=== PATIENT | female | born 1950 | race Caucasian/White ===

== ENCOUNTER 2020-01-10 06:52 | Day surgery (SDC) | payer MEDICARE, BC ==
[~2020-01-10] VITALS: Ht 175.3 cm; Wt 87.7 kg
[2020-01-10] VITALS (10 sets, daily range): BP systolic 118–155; BP diastolic 66–82; PULSE 52–79; TEMP 97.5–98.7
[2020-01-10] MEDS ORDERED: PRINIVIL10 MG PO (07:25)
[2020-01-10] MEDS ORDERED: ONE-A-DAY ESSE1 EACH PO (07:26)
[2020-01-10] MEDS ORDERED: FERROUS GL325 MG/TAB PO (07:27)
[2020-01-10] MEDS ORDERED: VITAMIN C500 MG PO (07:27)
[2020-01-10] MEDS ORDERED: FOLIC ACID0.4 MG PO (07:27)
--- NOTE | 2020-01-10 12:20 | NUR ---
PATIENT BACK IN ROOM 330 POST OP LTK. ORIENTED BUT DROWSY. VSS. DENIES PAIN IN LLE. PATIENT IS UNABLE TO MOVE BLE. LTK DRESSING IS CD&I WITH BULKY ACEWRAP AND ICE PACK INPLACE. TEDS TO RLE. SCD'S TO BLE. POSITIVE PEDAL PULSES TO BLE. HEAD TO TOE ASSESSMENT WNL. NO C/O N/V. IV FLUIDS INFUSING INTO LEFT HAND IV. LIQUIDS AT BEDSIDE. ORIENTED TO ROOM. CALL LIGHT IN REACH. PATIENT SLEEPING, LIGHTS TURNED DOWN.
--- NOTE | 2020-01-10 16:43 | NUR ---
[facility] met with the patient to complete initial intake. The patient lives in [place] with her , Nehemias. The patient has a walker and is independent with ADLs. The patient's PCP is Dr. Marcelle Drummond and patient receives medications from [facility] with no difficulties. The patient does not have advanced directives and was not interested in DPOA-HC form. The patient to have OP PT in [place]. Her first appointment is on Wednesday, 01/14. Nehemias will provide transportation at discharge. There are no additional needs at this time.
--- NOTE | 2020-01-10 21:00 | NUR ---
Pt ambulates with gait belt and walker with one assist to joint center window and back. Gait steady. Voids and then to bed. Takes HS meds without problem. IVF infusing to left forearm without redness or swelling.
--- NOTE | 2020-01-11 00:11 | NUR ---
Pt reports significant pain to left knee. Removed pillow from beneath leg and medicated with Oxycodone 10mg po at this time.
[2020-01-11 00:14] VITALS: BP 122/89; PULSE 66; TEMP 97.6
--- NOTE | 2020-01-11 01:40 | NUR ---
Pt reports pain 9/10 to left knee, medicated with Tramadol 100mg po at this time.
--- NOTE | 2020-01-11 03:30 | NUR ---
Pt reports pain is 4/10 at this time.
[2020-01-11 05:16] VITALS: BP 106/65; PULSE 56; TEMP 97.9
--- NOTE | 2020-01-11 05:26 | NUR ---
Medicated with Oxycodone 10mg po for left knee pain. Assisted to bathroom, voids and back to bed.
--- NOTE | 2020-01-11 07:18 | NUR ---
PT RESTING IN BED EATING BREAKFAST. DRESSING TO LEFT KNEE CDI. ROUNDED AND PLAN ON DISCHARGING LATER THIS PM AFTER PM THERAPY.
[2020-01-11 07:26] LABS: HEMOGLOBIN 11.8 g/dl (12.5-16.0)
--- NOTE | 2020-01-11 09:00 | NUR ---
PT INDEPENDENT IN ROOM TOLERATING GENERAL DIET. IV TO LFA. DRESSING TO LEFT KNEE CDI. PLAN ON DISCHARGE LATER TODAY. VSS. PAIN CONTROLLED WITH PO PAIN NEDS.
[2020-01-11 09:05] VITALS: BP 114/68; PULSE 57; TEMP 97.9
--- NOTE | 2020-01-11 10:54 | NUR ---
Initial visit; Patient thanked Corporate Sales Manager for looking in on her and offering spiritual care, especially prayer.
--- NOTE | 2020-01-11 11:28 | NUR ---
PT SLEEPING IN RECLINER DRESSING CHANGE COMPLETE. AQUACEL OVER INCISION WITH WELL APPROXIMATED EDGES.
[2020-01-11 12:50] VITALS: BP 100/57; PULSE 59; TEMP 97.7
[2020-01-11] MEDS ORDERED: ASPI325T6 PO (15:43)
[2020-01-11] MEDS ORDERED: NORCO 325 MG-7.1 TAB PO (15:44)
[2020-01-11] MEDS ORDERED: SENOKOT S 50 MG1 TAB PO (15:45)
[2020-01-11] MEDS ORDERED: ROXICODONE 55 MG/TAB PO (15:45)
--- NOTE | 2020-01-11 16:18 | NUR ---
DISCHARGE INSTRUCTIONS REVIEWED WITH PT AND SPOUSE. QUESTIONS SOLICITED AND ANSWERED
== END 2020-01-11 16:20 | disposition home or self-care (01) ==
LOC: SDCO 06:52 → JCC 06:52 → EDSTATUS 10:30 → JCC 10:30 → SDCO 01-11 16:20 → JCC 01-11 16:20
PROVIDERS: Orthopaedic Surgery
DX: M17.12 Unilateral primary osteoarthritis, left knee (principal); I10 Essential (primary) hypertension; Z79.899 Other long term (current) drug therapy; Z79.82 Long term (current) use of aspirin
CPT/HCPCS: A9284; C1776; J0690; J1100; J1885; J2250; J2405; J2704; J7030; J7120

== ENCOUNTER 2024-02-01 07:04 | Day surgery (SDC) | payer MEDICARE, BC ==
[~2024-02-01] VITALS: Ht 170.2 cm; Wt 84.7 kg
[~2024-02-01 07:04] MED LIST: ASPI325T6 PO; CEPHALEXIN500 M1 PO; ELIQUIS 5MG PO; FERROUS GL325 MG/TAB PO; FOLIC ACID0.4 MG PO; NORCO 325 MG-7.1 TAB PO; NS Flush 10 ML SYRINGE PRN ICA; ONE-A-DAY ESSE1 EACH PO; PRINIVIL20 MG PO; ROXICODONE 55 MG/TAB PO; SENOKOT S 50 MG1 TAB PO; VITAMIN C500 MG PO
[2024-02-01 07:27] VITALS: BP 140/94; PULSE 98; TEMP 97.6
[2024-02-01 08:12] LABS: HEMATOCRIT 41.6 % (37.0-47.0); HEMOGLOBIN 13.7 g/dl (12.5-16.0); MEAN CELL VOLUME 91 fl (80.0-100.0); MEAN CORPUSCULAR HEMOGLOBIN 30 pg (27-31); MEAN CORPUSCULAR HGB CONC 33 g/dl (33.0-37.0); MEAN PLATELET VOLUME 10.7 fl (7.4-10.4); PLATELET COUNT 198 K/mm3 (130-400); RED BLOOD COUNT 4.57 M/mm3 (4.10-5.30)
[2024-02-01 08:15] LABS: INR 1.4 (0.8-3.0); PROTHROMBIN TIME 14.9 SECONDS (9.7-12.8)
[2024-02-01 08:17] LABS: PARTIAL THROMBOPLASTIN TIME 39.3 SECONDS (26.0-37.0)
[2024-02-01 08:34] LABS: CALCIUM 9.2 mg/dL (8.4-10.2); CREATININE, serum 0.73 mg/dL (0.57-1.11); MAGNESIUM 2.2 mg/dL (1.6-2.6); POTASSIUM 4.1 mEq/L (3.5-4.5)
[2024-02-01] MEDS ORDERED: NS Flush 10 ML SYRINGE BID ICA SCH (09:00)
[2024-02-01] MEDS ORDERED: Hydrocortisone 1% Cream 30 GM TUBE TP PRN (09:15)
[2024-02-01] MEDS ORDERED: LR 1,000 ML IV SCH (09:18)
[2024-02-01 09:30] VITALS: BP 100/60; PULSE 60
[2024-02-01 09:45] VITALS: BP 108/70; PULSE 62
[2024-02-01] MEDS ORDERED: MULTAQ400 MG PO (09:45)
[2024-02-01 10:00] VITALS: BP 115/81; PULSE 60
[2024-02-01 10:00] LABS: THYROID STIMULATING HORMONE 2.816 uIU/mL (0.350-4.940)
[2024-02-01 10:15] VITALS: BP 130/103; PULSE 60
[2024-02-01 10:30] VITALS: BP 131/87; PULSE 60
--- NOTE | 2024-02-01 10:57 | NUR ---
PT TOLERATED RECOVERY PERIOD WELL. VS REMAINED WITHIN NORMAL LIMITS AND PT REMAINED FREE FROM ACUTE CONCERNS AND COMPLAINTS. PT ASSISTED TO MAIN LOBBY VIA WHEELCHAIR UPON DISCHARGE AND WAS ACCOMPANIED BY . IV DISCONTINUED. PT VERBALIZED UNDERSTANDING OF DISCHARGE INSTRUCTIONS.
== END 2024-02-01 10:58 | disposition home or self-care (01) ==
LOC: COL.CAR 07:04
PROVIDERS: Internal Medicine Cardiovascular Disease
DX: I48.91 Unspecified atrial fibrillation (principal); I10 Essential (primary) hypertension; Z79.01 Long term (current) use of anticoagulants; Z95.828 Presence of other vascular implants and grafts
CPT/HCPCS: J2704; J7120